=== PATIENT | female | born 1995 | race Caucasian/White ===

== ENCOUNTER 2020-05-28 15:55 | Emergency (ER) | payer BC ==
[~2020-05-28] VITALS: Ht 157.5 cm; Wt 45.4 kg
[2020-05-28] MEDS ORDERED: PROMETHAZINE HCL 25 MG/ML 1ML ONE (16:15)
[2020-05-28] MEDS ORDERED: HYDROmorphone HCL 2 MG/ML VL IV ONE ×2 (16:15→18:45)
[2020-05-28] MEDS ORDERED: PROMETHAZINE HCL 25 MG/ML 1ML IV ONE (16:15)
[2020-05-28] MEDS ORDERED: CLINDAMYCIN 600MG IV 50 ML IV ONE (16:30)
[2020-05-28] MEDS ORDERED: cefTRIAXone 1GM/50ML D5W 50 ML IV ONE (16:30)
[2020-05-28] MEDS ORDERED: TETANUS-DIPTH-ACEL PERTUSSIS 0.5ML SYR Tdap IM ONE (16:30)
[2020-05-28] MEDS ORDERED: LIDOCAINE 2% (LOCAL ANESTH.) PF 5ml SDV ONE (17:46)
[2020-05-28] MEDS ORDERED: LORazepam 2MG/ML-1ML VIAL IV ONE ×2 (18:00)
[2020-05-28 19:28] VITALS: BP 110/50
[2020-05-28] MEDS ORDERED: ONDANSETRON HCL 4 MG/2 ML VIAL IV ONE ×2 (19:45)
== END 2020-05-28 20:31 | disposition home or self-care (01) ==
LOC: ER 15:55 → EDBD 15:55 → ER 20:31
DX: S71.111A Laceration without foreign body, right thigh, initial encounter (principal); W54.0XXA Bitten by dog, initial encounter; Y93.89 Activity, other specified; Y92.89 Other specified places as the place of occurrence of the external cause; Y99.8 Other external cause status
CPT/HCPCS: 12002; 73552; 90471; 90715; 96365; 96367; 96375; 96376; 99285; J0696; J1170; J2001; J2060; J2405; J2550; J3490

== ENCOUNTER 2020-05-31 14:13 | Emergency (ER) | payer BC ==
[~2020-05-31] VITALS: Ht 160 cm; Wt 45.8 kg
[2020-05-31] MEDS ORDERED: cefTRIAXone W LIDOCAINE 1 GM IM IM ONE (16:30)
[2020-05-31] MEDS ORDERED: CLINDAMYCIN 600 MG/4 ML VL IM ONE (16:30)
[2020-05-31] MEDS ORDERED: cefTRIAXone SOD 1,000 MG VL ONE (17:21)
[2020-05-31 17:44] VITALS: BP 118/80
== END 2020-05-31 17:55 | disposition home or self-care (01) ==
LOC: ER 14:13
DX: L03.115 Cellulitis of right lower limb (principal); Z88.8 Allergy status to other drugs, medicaments and biological substances; Z91.040 Latex allergy status
CPT/HCPCS: 96372; 99284; J0696; J7030

== ENCOUNTER 2020-06-03 14:06 | Emergency (ER) | payer BC ==
[~2020-06-03] VITALS: Ht 157.5 cm; Wt 47.6 kg
[2020-06-03 14:36] VITALS: BP 95/57
[2020-06-03] MEDS ORDERED: cefTRIAXone 1GM/50ML D5W 50 ML IV ONE (14:45)
[2020-06-03] MEDS ORDERED: CLINDAMYCIN 600MG IV 50 ML IV ONE (14:45)
== END 2020-06-03 15:48 | disposition home or self-care (01) ==
LOC: ER 14:06
DX: L03.115 Cellulitis of right lower limb (principal); Z88.6 Allergy status to analgesic agent; Z91.040 Latex allergy status
CPT/HCPCS: 96365; 96375; 99284; J0696; J3490

== ENCOUNTER 2020-06-06 17:40 | Emergency (ER) | payer BC ==
[~2020-06-06] VITALS: Ht 157.5 cm; Wt 49.9 kg
[2020-06-06 20:54] VITALS: BP 132/59
[2020-06-06] MEDS ORDERED: cefTRIAXone SOD 1,000 MG VL IM ONE (21:45)
== END 2020-06-06 22:14 | disposition home or self-care (01) ==
LOC: ER 17:40
DX: L03.115 Cellulitis of right lower limb (principal); S71.151D Open bite, right thigh, subsequent encounter; W54.0XXD Bitten by dog, subsequent encounter
CPT/HCPCS: 96372; 99283; J0696

== ENCOUNTER 2020-06-10 16:59 | Emergency (ER) | payer BC ==
[~2020-06-10] VITALS: Ht 157.5 cm; Wt 49.9 kg
[2020-06-10 17:21] VITALS: BP 132/54
== END 2020-06-10 17:43 | disposition home or self-care (01) ==
LOC: ER 16:59
DX: L03.115 Cellulitis of right lower limb (principal); Z88.6 Allergy status to analgesic agent; Z91.040 Latex allergy status

== ENCOUNTER 2020-06-14 10:58 | Emergency (ER) | payer BC ==
[~2020-06-14] VITALS: Ht 157.5 cm; Wt 49.9 kg
[2020-06-14] MEDS ORDERED: MORPHINE SULF INJ 2 MG/ML SYRINGE 1ML ONE (11:38)
[2020-06-14] MEDS ORDERED: ONDANSETRON HCL 4 MG/2 ML VIAL ONE (11:38)
[2020-06-14] MEDS ORDERED: LORazepam 2MG/ML-1ML VIAL ONE (11:38)
[2020-06-14] MEDS ORDERED: ONDANSETRON HCL 4 MG/2 ML VIAL IV ONE (11:45)
[2020-06-14] MEDS ORDERED: MORPHINE SULF INJ 2 MG/ML SYRINGE 1ML IV ONE (11:45)
[2020-06-14] MEDS ORDERED: LORazepam 2MG/ML-1ML VIAL IV ONE (11:45)
[2020-06-14] MEDS ORDERED: IOHEXOL 300 MG/ML 100ML BOTTLE IJ ONE (11:49)
[2020-06-14 12:38] VITALS: BP 104/42
[2020-06-14] MEDS ORDERED: LIDOCAINE 2% (LOCAL ANESTH.) PF 5ml SDV ONE (14:10)
[2020-06-14] MEDS ORDERED: cefTRIAXone SOD 1,000 MG VL IM ONE (14:15)
== END 2020-06-14 13:48 | disposition home or self-care (01) ==
LOC: ER 10:58
DX: L03.115 Cellulitis of right lower limb (principal); F41.9 Anxiety disorder, unspecified
CPT/HCPCS: 73701; 96374; 96375; 99285; J0696; J2001; J2060; J2270; J2405; Q9967; 96372

== ENCOUNTER 2020-06-21 13:07 | Emergency (ER) | payer BC ==
[~2020-06-21] VITALS: Ht 157.5 cm; Wt 52.2 kg
[2020-06-21 13:15] VITALS: BP 106/59
== END 2020-06-21 13:20 | disposition home or self-care (01) ==
LOC: ER 13:07
DX: Z48.00 Encounter for change or removal of nonsurgical wound dressing (principal); L03.115 Cellulitis of right lower limb; F41.9 Anxiety disorder, unspecified; Z88.6 Allergy status to analgesic agent; Z91.040 Latex allergy status

== ENCOUNTER 2021-10-02 05:07 | Emergency (ER) | payer BC, OTHER ==
[~2021-10-02] VITALS: Ht 157.5 cm; Wt 49.9 kg
[2021-10-02 05:08] VITALS: BP 112/79
== END 2021-10-02 06:06 | disposition left against medical advice (07) ==
LOC: ER 05:07
DX: R10.9 Unspecified abdominal pain (principal); R11.2 Nausea with vomiting, unspecified; R19.7 Diarrhea, unspecified; Z53.21 Procedure and treatment not carried out due to patient leaving prior to being seen by health care provider

== ENCOUNTER 2023-10-07 19:10 | Emergency (ER) | payer BC, OTHER ==
[~2023-10-07] VITALS: Ht 160 cm; Wt 54.8 kg
[2023-10-07 21:05] VITALS: BP 121/65; PULSE 74; RESP 17; O2SAT 100
[2023-10-07 21:38] LABS: Basophils # (auto) 0 10 ^3/uL (0-0.2); Basophils % (auto) 0.3 % (0.0-2.0); Eosinophils # (auto) 0 10 ^3/uL (0-0.8); Eosinophils % (auto) 0.2 % (0.0-7.0); Hematocrit 37.3 % (36.0-46.0); Hemoglobin 12.6 g/dL (12.2-16.2); Lymphocytes # (auto) 2.1 10 ^3/uL (0.4-5.4); Mean Corpuscular Hemoglobin 31.4 pg (28.0-32.0); Mean Corpuscular Hgb Conc. 33.7 g/dL (32.0-36.0); Mean Corpuscular Volume 93.2 fL (80.0-100.0); Monocytes % (auto) 6.8 % (0.0-12.0); Neutrophils # (auto) 10.8 10 ^3/uL (1.6-8.6); Neutrophils % (auto) 77.7 % (37.0-80.0); White Blood Cell 13.9 10^3/uL (4.4-10.8)
[2023-10-07 21:57] LABS: Alanine Aminotransferase 23 U/L (7-40); Albumin 4.5 g/dL (3.2-4.8); Alkaline Phosphatase 77 U/L (46-116); Anion Gap 8 (5-15); Aspartate Aminotransferase 17 U/L (13-40); BUN/Creatinine Ratio 26.3 (10.0-20.0); Blood Urea Nitrogen 15 mg/dL (9-23); Calcium 9.9 mg/dL (8.5-10.1); Carbon Dioxide 23 mmol/L (20-30); Chloride 106 mmol/L (98-107); Glucose 90 mg/dL (74-106); Sodium 137 mmol/L (136-145)
[2023-10-07 21:58] LABS: Bilirubin, Total 0.3 mg/dL (0.2-1.0); Total Protein 6.7 g/dL (5.7-8.2)
[2023-10-07 22:14] LABS: Urine Bacteria FEW /hpf (None Seen); Urine Blood 3+ /uL (Negative); Urine Clarity Clear (Clear); Urine Color STRAW (Yellow); Urine Mucus FEW (None Seen); Urine Protein, UAD Negative (Negative); Urine Specific Gravity 1.017 (1.001-1.035); Urine Urobilinogen Normal (Negative); Urine WBC 3 /hpf (0 - 5); Urine pH 6.5 (5.0-8.0)
== END 2023-10-08 04:03 | disposition home or self-care (01) ==
LOC: ER 19:10
DX: O20.0 Threatened abortion (principal); O30.001 Twin pregnancy, unspecified number of placenta and unspecified number of amniotic sacs, first trimester; Z3A.09 9 weeks gestation of pregnancy; Z88.6 Allergy status to analgesic agent; Z91.040 Latex allergy status
CPT/HCPCS: 36415; 76801; 80053; 81001; 84702; 85025